=== PATIENT | male | born 1980 | race Caucasian/White ===

== ENCOUNTER → 2023-10-21 | Emergency (ER) | payer OTHER ==
[~2023-10-21] MED LIST: KETOROLAC 30 MG/ML INJ ONE; TDAP (DIPHTH,PERTUSS(ACELL),TET VAC) 0.5 ML VIAL IMVAC ONE
--- OUTSIDE RECORDS SUMMARY | 2023-10-21 12:23 | XMS REPORT | Continuity of Care Document ---
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
--- NOTE | 2023-10-21 12:46 | EDPHYS ---
Physician Documentation [facility] Name: Vinicius Benavides Age: 43 yrs Sex: Male : 1980 Arrival Date: 10/21/2023 Time: 12:22 Bed 11 Private MD: ED Physician Augustus Oh HPI: 10/21 12:45 This 43 yrs old Male presents to ER via Ambulatory with complaints of Dog ec2 Bite. 12:45 Patient arrives today for evaluation of a dog bite. States that he was bitten by his ec2 neighbors dog. Was bitten on the right buttock and right back as well as scratch. Patient is unsure of his personal tetanus status. He was told by neighbor that the dog is up-to-date on vaccines.. Historical: - Allergies: 12:43 No Known Allergies; ll1 - PMHx: 12:43 None; ll1 - PSHx: 12:43 None; ll1 - Immunization history:: Last tetanus immunization: unknown. - Social history:: Smoking status: Patient denies any tobacco usage or history of. ROS: 12:45 Constitutional: as per hpi ec2 Exam: 12:45 Constitutional: GEN: NAD Head: atraumatic Eyes: EOMI Ears: External ears are ec2 normal. CV: regular rate LUNGS: no respiratory distress ABD: non-distended, soft, nontender, no guarding, not rigid SKIN: Several linear scratches noted on the right flank, bite minerva noted to the low back, no large tissue deficits MSK: no evidence of trauma NEURO: moves all extremities equally Vital Signs: 12:43 BP 164 / 102; Pulse 102; Resp 17; Temp 98.2; Pulse Ox 100% ; Pain 7/10; ll1 12:43 Pain Scale: Adult ll1 MDM: 12:45 Patient medically screened. ec2 12:45 Data reviewed: vital signs. ED course: Patient arrives today for evaluation of a dog ec2 bite. Examination remarkable for skin findings as noted above. Will update the patient's tetanus status, give the patient Toradol for pain control, start the patient on Augmentin. No evidence of superimposed infection however incident that occurred just prior to arrival. Patient with a benign abdomen that is soft and nontender not guarding, with suspicion for solid organ injury.. Administered Medications: 13:10 Drug: Ketorolac IM 15 mg IM once Route: IM; Site: left deltoid; cp4 13:16 Follow up: Response: No adverse reaction cp4 13:10 Drug: Boostrix Tdap IM 0.5 ml IM once; as a single dose Route: IM; Site: right deltoid; cp4 13:16 Follow up: Response: No adverse reaction cp4 Disposition Summary: 10/21/23 12:45 Discharge Ordered Notes: Location: Home ec2 Condition: Stable ec2 Diagnosis - Bitten by dog ec2 Followup: ec2 - With: Private Physician - When: - Reason: Recheck today's complaints Discharge Instructions: - Discharge Summary Sheet ec2 - Animal Bite, Adult, Grss-ub-Ftud ec2 Forms: - Medication Reconciliation Form ec2 - Thank You Letter ec2 - Antibiotic Education ec2 - Prescription Opioid Use ec2 - Patient Portal Instructions ec2 - Leadership Thank You Letter ec2 Prescriptions: - Augmentin 875-125 mg Oral Tablet - take 1 tablet ORAL route every 12 hours for 10 days; 20 tablet; Refills: 0, ec2 Product Selection Permitted Signatures: Zeyad Mancera RN RN ll1 Augustus Oh MD MD ec2 Emelyn Mcdermott cp4 Corrections: (The following items were deleted from the chart) 12:47 12:45 Constitutional: GEN: NAD Head: atraumatic Eyes: EOMI Ears: External ears are ec2 normal. CV: regular rate LUNGS: no respiratory distress ABD: non-distended SKIN: Several linear scratches noted on the right flank, bite minerva noted to the low back, no large tissue deficits MSK: no evidence of trauma NEURO: moves all extremities equally ec2
[2023-10-21 14:56] VITALS: BP 164/102; TEMP 98.2; O2SAT 100
== END ==
LOC: ER 12:22
DX: S30.870A Other superficial bite of lower back and pelvis, initial encounter (principal); W54.0XXA Bitten by dog, initial encounter
CPT/HCPCS: 96372; 99284

== ENCOUNTER 2024-02-21 23:01 | Emergency (ER) | payer OTHER ==
--- OUTSIDE RECORDS SUMMARY | 2024-02-21 23:03 | XMS REPORT | Continuity of Care Document ---
Author Name Unknown Address [address] thconnect Address [address] [facility] [address] [place] [address] Care Team Providers Care Soap Chipper Name Role Phone JAYME CHRIS Attending Clinician MELVIN Jim Attending Clinician Unavailedei ELIZABETH Attending Clinician ANDREW Lundberg Attending Clinician Unavailable Payers Payer Name Policy Type Policy Number Effective Date Expirati on Date Source [facility] [employer] 9 [id number] 2023 00:00:00 Problems Condition Name Condition Details Condition Category Status Onset Date Resolution Date Last Treatment Date Treating Clinician Comments Source Hypothyroi dism Hypothyroi dism Disease Active 09-29 00:00: 00 Louis Hulla l Social History Social Habit Start Date Stop Date Quantity Comments Source Sexual orientation Pooja Nguyen - External Tobacco use and exposure 2023-10-23 00:00:00 2023-10-23 00:00:00 Smokeless tobacco non-user Louis Nguyen - External Alcohol intake 2023-10-23 00:00:00 2023-10-23 00:00:00 Lifetime non-drinker (finding) Louis Nguyen - External History of Social function 2023-10-23 00:00:00 2023-10-23 00:00:00 Louis Nguyen - External Sex Ass[birth year] At 1980 00:00:00 1980 00:00:00 Louis Nguyen - External Smoking Status Start Date Stop Date Source Never smoked tobacco Louis Nguyen - External Medications Ordered Medication Name Filled Medication Name Start Date Stop Date Current Medication? Ordering Clinician Indication Dosage Frequency Signature (SIG) Comments Components Source Levothyroxi ne Sodium 150 MCG oral Tablet 10-23 10:28: 38 Yes 150ug Take 1 tablet (150 mcg total) by mouth daily. Louis tomas Amoxicillin -Pot Clavulanate 875-125 MG oral Tablet 10-21 00:00: 00 Yes 1{tbl} Take 1 tablet by mouth 2 times daily FOR 10 DAYS. Louis tomas Vital Signs Vital Name Observation Time Observation Value Comments S ource Systolic blood pressure 2023-10-23 16:39:00 138 mm[Hg] Louis lerma - External Diastolic blood pressure 2023-10-23 16:39:00 86 mm[Hg] Louis lerma - External Heart rate 2023-10-23 16:24:00 90 /min Jared Nguyen - External Body temperature 2023-10-23 16:24:00 37.06 [place] Louis Nguyen - External Respiratory rate 2023-10-23 16:24:00 18 /min Louis Nguyen - External Body height 2023-10-23 16:24:00 167.6 cm Nel Nguyen - External Body weight 2023-10-23 16:24:00 79.833 kg Nel Nguyen - External BMI 2023-10-23 16:24:00 28.41 kg/m2 Nel Nguyen - External Oxygen saturation in Arterial blood by Pulse oximetry 2023-10-23 16:24:00 97 /min Louis lerma - External Encounters Start Date/Time End Date/Time Encounter Type Admission Type Attending [facility] Care Department Encounter ID Source 2023-12-03 00:00:00 2023-12-03 00:00:00 Outpatient JAYME CHRIS [id number] Louis Nguyen 2023-11-14 00:00:00 2023-11-14 00:00:00 Outpatient JAYME CHRIS [id number] Louis Nguyen 2023-10-24 10:30:00 2023-10-24 10:30:00 Outpatient MELVIN PENN [id number] Louis Nguyen 2023-10-23 11:15:00 2023-10-23 11:15:00 Outpatient CLARA [facility] [id number] Louis Sechun 2023-10-23 10:30:00 2023-10-23 10:30:00 Outpatient JAYME CHRIS [facility] [id number] Louis Nguyen 2023-10-21 00:00:00 2023-10-21 00:00:00 Outpatient ANDREW SANCHEZ [facility] [id number] Louisrolando Nguyen Notes Date/Time Note Provider Source 2023-10-23 10:28:39 ShSfHXA//[id number] NSqxqOrsHBwfD3AlbWvsCJPFk1/2023-10-23 T10:28:39 Chief ComplaintPatient presents withPhysicalFastingVitals:10/23/23 1024BP: 147/90Side: Left ArmPosition: SITTINGCuff Size: Large AdultPulse: 90Resp: 18Temp: 98.7 ?F (37.1 ?C)TempSrc: TympanicSpO2: 97%Weight: 176 lb (79.8 kg)Height: 5' 6" (1.676 m)No other voiced complaints at this time [id number] [id number]:30:29Nurse [id number] for patient [id number] NoteLNNARRATIVEFormatted C-CDA narrative AraceliPatrick [id number] [facility] [id number] [id number] [facility]
[2024-02-21] MEDS ORDERED: DIAZEPAM 10 MG/2 ML INJ SYRINGE ONE (23:27)
[2024-02-21] MEDS ORDERED: HALOPERIDOL LACT 5 MG/ML INJ ONE (23:27)
[2024-02-21] MEDS ORDERED: DIPHENHYDRAMINE 50 MG/ML VIAL ONE (23:28)
[2024-02-22 01:49] LABS: Absolute Lymphocytes (CBC) 1.8 K/uL (0.7-4.9); Absolute Monocytes 0.4 K/uL (0.1-1.3); Absolute Neutrophil 7.4 K/uL (1.8-8.0); Basophils % 0.4 % (0-1.3); Eosinophils % 0.3 % (0-4.4); Hematocrit 44.6 % (39.6-49.0); Hemoglobin 15.2 g/dL (13.6-17.9); Lymphocytes % 18.8 % (15.3-44.8); MCHC 34.1 g/dL (32.0-36.0); MPV 8.1 fL (7.6-11.3); Monocytes % 4.6 % (3.3-12.3); Neutrophils % 75.9 % (41.7-73.7); Platelets 249 thou/uL (152-406); RBC Red Blood Cell Count 4.89 M/uL (4.33-5.43); Red Cell Distribution Width 13.4 % (12.1-15.2)
[2024-02-22 01:55] LABS: Anion Gap 12.8 mEq/L (5.0-15.0)
[2024-02-22 02:00] LABS: Potassium 3.8 mEq/L (3.5-5.1)
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
[2024-02-22 04:40] VITALS: TEMP 98
[2024-02-22 05:03] VITALS: BP 123/69; O2SAT 99
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
== END 2024-02-22 04:26 | disposition home or self-care (01) ==
LOC: ER 23:01
DX: F10.929 Alcohol use, unspecified with intoxication, unspecified (principal); R51.9 Headache, unspecified; V89.2XXA Person injured in unspecified motor-vehicle accident, traffic, initial encounter
CPT/HCPCS: 85025; 80048; 36415; 86900; 86850; 86901; 70450; 72125; 71260; 74177; 96372; 99284; 82077; Q9967; J3360; J1200; J1630